=== PATIENT | male | born 1970 | race Caucasian/White ===

== ENCOUNTER 2017-01-12 18:52 | Emergency (ER) | payer SELFPAY ==
[2017-01-12 19:09] VITALS: BP 131/97
[2017-01-12] MEDS ORDERED: Ketorolac 30 MG/ML SDV IVPUSH ONE (19:51)
--- NOTE | 2017-01-12 19:56 | EDM.PDOC ---
ED HPI Trauma - General Chief Complaint: Lower Extremity Injury/Pain Stated Complaint: PAIN IN RIGHT CALF Time Seen by Provider: 01/12/17 19:52 Source: Reports: Patient History Limitations: Reports: No limitations - History of Present Illness INITIAL COMMENTS - FREE TEXT/NARRATIVE: states onset right calf pain yesterday and not better. denies trauma. denies SOB /CP or any discomfort other tahn right leg. 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 [No Known Home Meds] 04/27/16 [Confirmed 04/27/16] Social & Family History - Tobacco Use Smoking Status *Q: Current Every Day Smoker Years of Tobacco use: 20 Packs/Tins Daily: 10 - Caffeine Use Caffeine Use: Reports: Soda - Recreational Drug Use Recreational Drug Use: No Review of Systems - Review of Systems Review Of Systems: ROS reveals no pertinent complaints other than HPI. Trauma Exam - Physical Exam Exam: See Below Exam Limited By: No limitations General Appearance: Reports: alert, WD/WN, mild distress, other (distraught) Head: Reports: atraumatic Eyes: bilateral eye: PERRL (ess ER @ 4mm) Ears: Reports: hearing grossly normal Throat/Mouth: Reports: Normal voice, No airway compromise Neck: Reports: non-tender, full range of motion Respiratory Exam: Reports: no respiratory distress Cardiovascular: Reports: regular rate, rhythm GI/Abdominal: Reports: soft, non tender Extremities: Reports: pain with movement, tenderness, other (right calf with s/ s cellulitis, NV wnl, gait limited to pain) Neurologic: Reports: alert, normal mood/affect, oriented x 3 Skin: Reports: Normal color, Warm/dry Course - Vital Signs Last Recorded V/S: Last Vital Signs Temp 36.2 C 01/12/17 19:04 Pulse 82 01/12/17 19:04 Resp 18 01/12/17 19:04 BP 131/97 H 01/12/17 19:04 Pulse Ox 99 01/12/17 19:04 - Orders/Labs/Meds Labs: Laboratory Tests 03/01/12/17 01/12/17 Range/Units 19:38 19:38 19:38 WBC 8.4 (5.0-10.0) 10^3/uL RBC 4.96 (4.6-6.2) 10^6/uL Hgb 15.7 (14.0-18.0) g/dL Hct 46.5 (40.0-54.0) % MCV 93.8 (80-100) fL MCH 31.7 (27.0-34.0) pg MCHC 33.8 (33.0-35.0) g/dL Plt Count 275 (150-450) 10^3/uL Neut % (Auto) 60.1 (42.2-75.2) % Lymph % (Auto) 27.5 (20.5-50.1) % Dade % (Auto) 8.2 H (2-8) % Eos % (Auto) 3.6 H (1.0-3.0) % Baso % (Auto) 0.6 (0.0-1.0) % PT 10.3 (9.0-12.0) SEC INR 1.0 (0.9-1.2) APTT 32.0 (22.0-34.0) SEC D-Dimer, Quantitative < 100 (0-400) ng/mL Sodium 137 (135-145) mmol/L Potassium 5.0 (3.6-5.0) mmol/L Chloride 104 (101-111) mmol/L Carbon Dioxide 24.0 (21.0-31.0) mmol/L Anion Gap 14.0 BUN 9 (7-18) mg/dL Creatinine 0.9 (0.6-1.3) mg/dL Est Cr Clr Drug Dosing 124.57 mL/min Estimated GFR (MDRD) > 60 BUN/Creatinine Ratio 10.00 Glucose 102 (74-105) mg/dL Calcium 9.0 (8.4-10.2) mg/dl Total Bilirubin 0.5 (0.2-1.0) mg/dL AST 46 H (10-42) IU/L ALT 57 (10-60) IU/L Alkaline Phosphatase 53 (42-121) IU/L Total Protein 8.0 (6.7-8.2) g/dl Albumin 4.6 (3.2-5.5) g/dl Globulin 3.4 Albumin/Globulin Ratio 1.35 Meds: Medications Discontinued Medications Generic Name Dose Route Start Last Admin Trade Name Sushma PRN Reason Stop Dose Admin Ketorolac Tromethamine 15 mg 01/12/17 19:51 01/12/17 20:06 Toradol IVPUSH 01/12/17 19:52 15 mg ONETIME ONE Administration Oxycodone HCl 5 mg 01/12/17 20:31 Oxycodone PO 01/12/17 20:32 ONETIME ONE - Re-Assessments/Exams Free Text/Narrative Re-Assessment/Exam: 01/12/17 20:32 reults discussed with Pt who states prefer to get [place] DVT tomorrow. risk factors incl' discussed but Pt insistent on doing it tomorrow. Pt encouraged to return if there's any change. Departure - Departure Time of Disposition: 20:35 Disposition: Home, Self-Care 01 Condition: good Clinical Impression: Right calf pain Instructions: Deep Vein Thrombosis Forms: ED Department Discharge Additional Instructions: 1) must get ULTRA SOUND IN MORNING FOR POSSIBLE DVT 2) must return immediately if develops chest pain, short of breath, dizziness or if has any concerns.
[2017-01-12 20:06] LABS: CHLORIDE,CL 104 mmol/L (101-111); SODIUM,NA 137 mmol/L (135-145)
[2017-01-12] MEDS ORDERED: oxyCODONE 5 MG Tab PO ONE (20:31)
== END 2017-01-12 20:50 | disposition home or self-care (01) ==
LOC: DL.ED 18:52
DX: M79.1 Myalgia (principal); F17.210 Nicotine dependence, cigarettes, uncomplicated; Z88.8 Allergy status to other drugs, medicaments and biological substances; Z88.5 Allergy status to narcotic agent
CPT/HCPCS: 36415; 80053; 85025; 85379; 85610; 85730; 96374; 99283; A9270; J1885; 99284